=== PATIENT | male | born 1945 | race Caucasian/White ===

== ENCOUNTER 2024-01-17 14:07 | Emergency (ER) | payer OTHER, MEDICARE, SELFPAY ==
[2024-01-17] VITALS (11 sets, daily range): BP systolic 172–242; BP diastolic 82–117; PULSE 69–95; RESP 12–26; TEMP 36.4; O2SAT 94–98; BMI 27.1
--- NOTE | 2024-01-17 14:16 | DI.RAD.S_ITS ---
PROCEDURE: XR CHEST 1V INDICATIONS: chest pain TECHNIQUE: One view of the chest was acquired. COMPARISON: None. FINDINGS: Surgical changes and devices: None. Lungs and pleura: Lungs are clear. No pleural effusions or pneumothorax. Mediastinum: Mediastinal contours appear normal. Heart size is normal. Bones and chest wall: No suspicious bony lesions. Overlying soft tissues appear unremarkable. IMPRESSION: No acute cardiopulmonary abnormality is seen. Dictated by: Kiran Daly M.D. on 01/17/2024 at 15:13 Approved by: Kiran Daly M.D. on 01/17/2024 at 15:14
--- NOTE | 2024-01-17 14:16 | EKG_ITS ---
[address] [address] Test Date: 2024-01-17 Pat Name: Thanh Carroll Department: Room: Gender: Male Aromatherapist: KYLER : 1945 Requested By: Order Number: [id number] Reading MD: Thanh Louie MD Measurements Intervals [place] Rate: 81 P: 56 NM: 176 QRS: 35 QRSD: 86 T: 14 QT: 354 QTc: 411 Interpretive Statements Normal sinus rhythm Possible Left atrial enlargement Anteroseptal infarct , age undetermined Electronically Signed On 01-17-2024 16:48:34 PST by Thanh Louie MD
[2024-01-17 14:26] LABS: Add Manual Diff / Slide Review NO; Basophils Absolute Auto 100 /uL (0-100); Basophils Percent Auto 0.8 % (0-2); Eosinophils Absolute Auto 200 /uL (0-450); Eosinophils Percent Auto 3.3 % (2-4); Hematocrit 44.5 % (41-53); Hemoglobin 15.5 g/dL (13.5-17.5); Lymphocytes Absolute Auto 1900 /uL (1100-4500); Lymphocytes Percent Auto 27.8 % (25-40); Mean Corpuscular HGB Conc 34.7 % (30-36); Mean Corpuscular Volume 89.3 fL (80-100); Monocytes Absolute Auto 500 /uL (0-900); Monocytes Percent Auto 7.7 % (3-14); Neutrophils Absolute Auto 4100 /uL (1500-7000); Neutrophils Percent Auto 60.4 % (50-75); Platelet Count 313 X10^3/uL (150-400); Red Blood Cell Count 4.99 X10^6/uL (4.5-5.9); Red Cell Distribution Width 13.3 % (11.6-14.8); White Blood Cell Count 6.9 X10^3/uL (4.5-11.0)
[2024-01-17 14:38] LABS: Prothrombin Time 11.3 SECONDS (9.4-12.5)
[2024-01-17 14:41] LABS: PTT Partial Thromboplastin Tim 36 SECONDS (25.1-36.5)
[2024-01-17 14:42] LABS: Alanine Aminotransferase 45 IU/L (<50); Albumin 4.7 g/dL (3.5-5.0); Albumin Globulin Ratio 1.2 (1.0-2.8); Alkaline Phosphatase 98 U/L (38-126); Aspartate Aminotransferase 40 IU/L (17-59); BUN Creatinine Ratio 21.4 (6-22); Bilirubin Total 0.5 mg/dL (0.2-1.3); Blood Urea Nitrogen 21 mg/dL (9-20); Calcium 9.4 mg/dL (8.4-10.2); Carbon Dioxide 30 mmol/L (22-32); Chloride 103 mmol/L (98-107); Creatine Kinase 79 U/L (55-170); Estimated Glomerular Filt Rate > 60 mL/min (>60); Globulin 3.8 g/dL (1.7-4.1); Glucose 128 mg/dL (80-110); HEMOLYSIS 17 (0-50); Lipase 67 U/L (23-300); Potassium 3.8 mmol/L (3.4-5.1); Sodium 139 mmol/L (137-145); Total Protein 8.5 g/dL (6.3-8.2)
[2024-01-17 14:54] LABS: NT-proBNP (BNP-Adult 18+) 117 pg/mL (<450); Troponin I < 0.012 ng/mL (0.01-0.034)
--- NOTE | 2024-01-17 15:09 | ED.GENADULT ---
HPI - General Adult General Chief complaint: Hypertension Stated complaint: HBP, SOB, SOLOMON, left arm px, from [facility] Time Seen by Provider: 01/17/24 14:19 Source: patient Mode of arrival: Ambulatory History of Present Illness HPI narrative: Patient is a 78-year-old male. Has a history of hypertension. At 1 point was on medications for his blood pressure but when he left his former primary doctor and moved to the local area he decided to come off of his blood pressure medicines and try to change his blood pressure based on diet and exercise and other lifestyle modifications. He has been off of all his medications for the past year. He does take his blood pressure at home. He states that his systolic blood pressure normally runs in the 140-150 range with a diastolic in the 80s to 90s range. He stated that earlier this week he was going in for a dental procedure. As he was going in for the dental procedure he started noticing some tingling in his chest and in his left arm. A slight headache. His blood pressure was significantly elevated. He did not have the dental procedure performed. Since Sunday he has tried other behavioral modifications to include rest and relaxation however his blood pressures remained elevated. He went to the walk-in clinic today who advised that he come to the emergency department for further evaluation. Related Data Home Medications Medication Instructions Recorded Confirmed [CELEXA] Q DAY ##0 11/15/11 [LISINOPRIL] Q DAY ##0 11/15/11 venlafaxine 75 mg capsule,extended ##0 06/21/12 release 24 hr (Effexor XR) Previous Rx's Medication Instructions Recorded losartan 100 1 tab PO DAILY #30 tabs 01/17/24 mg-hydrochlorothiazide 25 mg tablet Allergies Allergy/AdvReac Type Severity Reaction Status Date / Time No Known Drug Allergies Allergy Verified 01/17/24 14:17 Review of Systems Review of Systems ROS Unobtainable: All systems reviewed & are unremarkable except as noted in HPI and below Patient History Social History Smoking Status: Unknown if ever smoked Smoking Status: Unknown if ever smoked Exam Initial Vital Signs Initial Vital Signs: Vital Signs Temperature 97.6 F 01/17/24 14:10 Pulse Rate 92 H 01/17/24 14:10 Respiratory Rate 14 01/17/24 14:10 Blood Pressure 242/117 H 12/12/24 14:10 Pulse Oximetry 97 01/17/24 14:10 Oxygen Delivery Method Room Air 01/17/24 14:10 Const General: cooperative, well developed and No ill appearing HENNJ Head: normal to inspection and normocephalic Resp Effort & Inspection: normal respiratory effort Auscultation: clear to auscultation bilaterally Cardio Rate: regular rate Rhythm: regular rhythm GI Inspection: normal to inspection and non-distended Skin General: no rashes or lesions noted Neuro General: patient alert, patient awake, patient oriented x3 and moves all extremities Extrem General: capillary refill normal Course Orders Ordered: ED Orders 01/17/24 14:15 Complete Blood Count AUTO DIFF Stat Comprehensive Metabolic Panel Stat Lipase Stat Magnesium Stat NT-proBNP (BNP-Adult 18+) Stat PTT Partial Thromboplastin Frank Stat Prothrombin Time INR Stat Troponin & CK Cardiac Panel Stat 01/17/24 14:16 XR chest 1V Stat EKG-12 Lead Stat 01/17/24 15:10 CT head/brain wo con Stat Discontinued Medications Aspirin (Aspirin 81 Mg Chew Tab) 324 mg PO NOW ONE Stop: 01/17/24 14:17 Last Admin: 01/17/24 15:22 Dose: Not Given Documented By: SARI Vital Signs Vital signs: Vital Signs - 8 hr 01/17/24 14:10 01/17/24 14:12 01/17/24 14:14 Temperature 97.6 F Pulse Rate 92 H 95 H Respiratory Rate 14 Blood Pressure 242/117 H 242/117 H Pulse Oximetry 97 97 Oxygen Delivery Method Room Air 01/17/24 14:14 01/17/24 14:30 01/17/24 14:31 Temperature Pulse Rate 84 77 Respiratory Rate 19 Blood Pressure 194/92 H Pulse Oximetry 98 98 Oxygen Delivery Method 01/17/24 14:31 01/17/24 15:00 01/17/24 15:00 Temperature Pulse Rate 76 75 Respiratory Rate 26 H 14 Blood Pressure 190/86 H Pulse Oximetry 97 96 Oxygen Delivery Method 01/17/24 15:25 01/17/24 15:25 01/17/24 15:30 Temperature Pulse Rate 74 72 Respiratory Rate 17 16 Blood Pressure 233/110 H Pulse Oximetry 96 94 Oxygen Delivery Method 01/17/24 15:31 01/17/24 15:31 01/17/24 16:00 Temperature Pulse Rate 73 69 Respiratory Rate 17 12 Blood Pressure 196/93 H Pulse Oximetry 95 95 Oxygen Delivery Method 01/17/24 16:01 01/17/24 16:01 Temperature Pulse Rate 69 Respiratory Rate 13 Blood Pressure 172/82 H Pulse Oximetry 96 Oxygen Delivery Method Medical Decision Making Lab Data Lab results reviewed: Yes I reviewed the patient's lab results. 01/17/24 14:15 01/17/24 14:15 Labs: Lab Results 01/17/24 Range/Units 14:15 WBC 6.9 (4.5-11.0) X10^3/uL RBC 4.99 (4.5-5.9) X10^6/uL Hgb 15.5 (13.5-17.5) g/dL Hct 44.5 (41-53) % MCV 89.3 (80-100) fL MCH 31.0 (26-34) PG MCHC 34.7 (30-36) % RDW 13.3 (11.6-14.8) % Plt Count 313 (150-400) X10^3/uL Neut % (Auto) 60.4 (50-75) % Lymph % (Auto) 27.8 (25-40) % Davidson % (Auto) 7.7 (3-14) % Eos % (Auto) 3.3 (2-4) % Baso % (Auto) 0.8 (0-2) % Neut # (Auto) 4100 (4536-4429) /uL Lymph # (Auto) 1900 (3369-9853) /uL Davidson # (Auto) 500 (0-900) /uL Eos # (Auto) 200 (0-450) /uL Baso # (Auto) 100 (0-100) /uL PT 11.3 (9.4-12.5) SECONDS INR 1.0 (0.9-1.3) APTT 36 (25.1-36.5) SECONDS Sodium 139 (137-145) mmol/L Potassium 3.8 (3.4-5.1) mmol/L Chloride 103 (98-107) mmol/L Carbon Dioxide 30 (22-32) mmol/L BUN 21 H (9-20) mg/dL Creatinine 0.98 (0.66-1.25) mg/dL Estimated GFR > 60 (>60) mL/min BUN/Creatinine Ratio 21.4 (6-22) Glucose 128 H (80-110) mg/dL Calcium 9.4 (8.4-10.2) mg/dL Magnesium 2.0 (1.6-2.3) mg/dL Total Bilirubin 0.5 (0.2-1.3) mg/dL AST 40 (17-59) IU/L ALT 45 (<50) IU/L Alkaline Phosphatase 98 (38-126) U/L Total Creatine Kinase 79 (55-170) U/L Troponin I < 0.012 (0.01-0.034) ng/mL NT-Pro-B Natriuret Pep 117 (<450) pg/mL Total Protein 8.5 H (6.3-8.2) g/dL Albumin 4.7 (3.5-5.0) g/dL Globulin 3.8 (1.7-4.1) g/dL Albumin/Globulin Ratio 1.2 (1.0-2.8) Lipase 67 (23-300) U/L Imaging Data Chest x-ray: Radiologist's Impression: PROCEDURE: XR CHEST 1V INDICATIONS: chest pain TECHNIQUE: One view of the chest was acquired. COMPARISON: None. FINDINGS: Surgical changes and devices: None. Lungs and pleura: Lungs are clear. No pleural effusions or pneumothorax. Mediastinum: Mediastinal contours appear normal. Heart size is normal. Bones and chest wall: No suspicious bony lesions. Overlying soft tissues appear unremarkable. IMPRESSION: No acute cardiopulmonary abnormality is seen. CT scan - head: Radiologist's Impression: PROCEDURE: CT HEAD/BRAIN WO CON INDICATIONS: Hypertension with headache TECHNIQUE: Noncontrast 4.5 mm thick angled axial sections acquired from the foramen magnum to the vertex, with coronal and sagittal reformats. For radiation dose reduction, the following was used: automated exposure control, adjustment of mA and/or kV according to patient size. COMPARISON: None. FINDINGS: Image quality: Diagnostic. CSF spaces: Basal cisterns are patent. No extra-axial fluid collections. The ventricles are symmetric in size and shape. Brain: No intracranial bleeds or masses. There is cerebral volume loss for age, with resultant ventricular and sulcal prominence. There are periventricular and deep white matter chronic small vessel ischemic changes. There is intracranial internal carotid artery atherosclerosis. Skull and face: Calvarium and visualized facial bones appear intact, without suspicious lesions. Sinuses: Visualized sinuses and mastoids are clear. IMPRESSION: No acute intracranial pathology. ECG Data Attestation: I personally reviewed and interpreted this ECG as follows: Interpretation: Sinus rhythm Ventricular rate of 81 Normal axis Normal QRS Normal [place] No ST T wave changes MDM Narrative Medical decision making narrative: Patient's blood pressure did improve somewhat without specific intervention here in the ER. Workup is not consistent with end-organ dysfunction such as CVA/TIA/ACS. Is not clinically in heart failure. Not in renal failure. I did discuss his high blood pressure with him. We discussed how he should be taking his blood pressure at home. It was important that he follow up with the primary care doctor and he was given information regarding this. He has been on blood pressure medications in the past. I gave him a prescription for his prior blood pressure medicines however he was going to take his blood pressure at home on a daily basis for the next 7-14 days. If he was persistently greater than 150/90 he will start taking the medication as directed. If not he was going to wait to follow up with his primary care doctor with a new appointment. He was given return precautions. He expressed understanding and agreement. Discharge Plan Departure Patient Disposition: Home Clinical Impression: Hypertension Instructions: DI for High Blood Pressure Activity Restrictions/Additional Instructions: Recommend that you contact [phone]. Calling this number can help you establish a primary doctor here in the local area. I recommend that you continue to take your blood pressure at home. If over the next 7-14 days your blood pressure is persistently greater than 150/90 start taking the blood pressure medications as directed. Return to the emergency department for new or worsening symptoms. Prescriptions: New losartan-hydrochlorothiazide 100-25 mg tablet 1 tab PO DAILY Qty: 30 2RF No Action [CELEXA] Q DAY Qty: 0 [LISINOPRIL] Q DAY Qty: 0 venlafaxine [Effexor XR] 75 MG capsule,extended release 24hr Qty: 0 Referrals: Timmy Beltran MD [Primary Care Provider] - Stand Alone Forms: Patient Portal/API/Survey
== END 2024-01-17 16:44 | disposition home or self-care (01) ==
PROVIDERS: Emergency Provider Emergency Medicine; PCP Internal Medicine
DX: I10 Essential (primary) hypertension (principal); R20.2 Paresthesia of skin
CPT/HCPCS: 36415; 70450; 71045; 80053; 82550; 83690; 83735; 83880; 84484; 85025; 85610; 85730; 93005; 93010; 99283; 99284